=== PATIENT | female | born 2000 | race African-American/Black ===

== ENCOUNTER 2019-08-14 12:22 | Emergency (ER) | payer OTHER ==
[~2019-08-14] VITALS: Ht 160 cm; Wt 59.1 kg
[2019-08-14 12:23] VITALS: BP 129/73
== END 2019-08-14 14:31 | disposition home or self-care (01) ==
LOC: EMS 12:35
DX: M25.571 Pain in right ankle and joints of right foot (principal); R03.0 Elevated blood-pressure reading, without diagnosis of hypertension

== ENCOUNTER 2020-03-21 16:33 | Emergency (ER) | payer OTHER ==
[~2020-03-21] VITALS: Ht 157.5 cm; Wt 50.0 kg
[2020-03-21 16:36] VITALS: BP 106/53
[2020-03-21] MEDS ORDERED: ACET-2865 PO (16:41)
[2020-03-21] MEDS ORDERED: MUPIROCIN CALCIUM 2% 22 GM OINTMENT TP ONE (17:15)
== END 2020-03-21 19:21 | disposition home or self-care (01) ==
LOC: EMS 16:33
DX: S60.221A Contusion of right hand, initial encounter (principal); F17.210 Nicotine dependence, cigarettes, uncomplicated; X58.XXXA Exposure to other specified factors, initial encounter; Y93.89 Activity, other specified; Y92.89 Other specified places as the place of occurrence of the external cause; Y99.8 Other external cause status
CPT/HCPCS: 99406